=== PATIENT | female | born 1995 | race Caucasian/White ===

== ENCOUNTER 2019-02-23 11:37 | Day surgery (SDC) | payer MEDICAID, OTHER ==
[~2019-02-23] VITALS: Ht 154.9 cm; Wt 82.0 kg
[2019-02-23] MEDS ORDERED: ALBUTEROL (12:16)
[2019-02-23] MEDS ORDERED: ZANTAC (12:17)
[2019-02-23] MEDS ORDERED: OMEPRAZOLE (12:17)
[2019-02-23] MEDS ORDERED: HYDROCHLOROQUIN (12:17)
[2019-02-23] MEDS ORDERED: BIRTH CONTROL (12:18)
[2019-02-23 12:19] VITALS: Ht 154.9 cm; Wt 82.0 kg
--- NOTE | 2019-02-23 12:39 | PREAC ---
Date/Time of Note Date/Time of Note DATE: 02/23/19 TIME: 12:38 Anesthesia Eval and Record Evaluation Time Pre-Procedure Interview DATE: 02/23/19 TIME: 12:38 Age 23 Sex female NPO: 8 hrs Preoperative diagnosis GERD Planned procedure EGD Past Medical History Past Medical History: Includes Pulm: Asthma GI: GERD Surgery & Anesthesia Issues No known issue Meds Anticoagulation: No Beta Faisal within 24 hr: No Reason Beta Faisal not given: Pt. not on B-Faisal Reported Medications [ Control] No Conflict Check 02/23/19 [Hydrochloroquin] No Conflict Check 02/23/19 [Zantac] No Conflict Check 02/23/19 [Omeprazole] No Conflict Check 02/23/19 [Albuterol] No Conflict Check 02/23/19 Meds reviewed: Yes Allergies Coded Allergies: Sulfa (Sulfonamide Antibiotics) (Verified Allergy, Severe, HIVES, 02/23/19) amoxicillin (Verified Allergy, Severe, hives, 02/23/19) Penicillins (Verified Allergy, Unknown, 02/23/19) Allergies Reviewed: Yes Labs/Studies Labs Reviewed: Reviewed by anesthesiologist test: Negative Pre-procedure Exam Airway: Adequate mouth opening Mallampati: Mallampati II Teeth: Normal Lung: Normal Heart: Normal ASA Physical Status ASA physical status: 2 Emergency: None Planned Anesthetic General/MAC: MAC Pre-operative Attestations Prior to commencing anesthesia and surgery, the patient was re-evaluated, there was verification of: *The patient's identity *The results of appropriate recent lab work and preoperative vital signs *The above evaluation not changing prior to induction *Anesthetic plan, risk benefits, alternative and complications discussed with patient/family; questions answered; patient/family understands, accepts and wishes to proceed. APARNA STEWART MD February 23, 2019 12:39
[2019-02-23 12:40] VITALS: BP 109/63; PULSE 85; RESP 18
[2019-02-23] MEDS ORDERED: PROPOFOL 20 ML ONE (12:40)
[2019-02-23] MEDS ORDERED: LIDOCAINE 2% (SDV) 5 ML INJ ONE (12:40)
[2019-02-23] MEDS ORDERED: ONDANSETRON 4 MG INJ IV PRN (13:00)
[2019-02-23] MEDS ORDERED: morphine (1 MG/ML) 10ML SYRINGE IV PRN (13:00)
[2019-02-23 13:27] VITALS: BP 104/62; PULSE 78; RESP 18
--- NOTE | 2019-02-23 13:39 | PAC ---
Date/Time of Note Date/Time of Note DATE: 02/23/19 TIME: 13:38 Post-Anesthesia Notes Post-Anesthesia Note Last documented vital signs Vital Signs Date Temp Pulse Resp B/P (MAP) Pulse Ox O2 O2 Flow FiO2 Time Delivery Rate 02/23/19 78 18 104/62 100 Room Air 13:27 (76) 02/23/19 98.2 12:40 Activity: WNL Respiratory function: WNL Cardiovascular function: WNL Mental status: Baseline Pain reasonably controlled: Yes Hydration appropriate: Yes Nausea/Vomiting absent: Yes APARNA STEWART MD February 23, 2019 13:39
[2019-02-23 14:05] VITALS: BP 129/64; PULSE 66; RESP 16
--- NOTE | 2019-02-23 16:22 | CONS ---
DATE OF ADMISSION: 02/23/2019 DATE OF CONSULTATION: PATIENT NAME: MIKE MCHUGH TYPE OF CONSULTATION: Preoperative gastroenterology. Dear Dr. Jeff: I thank you very much for this kind referral. HISTORY OF PRESENT ILLNESS: Ms. Mike Mchugh is a 22-year-old female patient who has been referred t o me for further evaluation of chronic heartburn not responding to therapy. The patient has been marquise ing omeprazole 40 mg once or twice a day and Zantac 150 mg p.o. b.i.d. She also takes Reglan 10 mg p .o. at bedtime. No upper abdominal pain. Not on nonsteroidal anti-inflammatory agents. No history of gallstones or liver disease. No change in the bowel habit or rectal bleeding. Not a hypertensive or diabetic. No heart disease. PAST MEDICAL HISTORY: The patient has got bronchial asthma. No kidney disease. She has lupus. SOCIAL HISTORY: Nonsmoker. No alcohol abuse. FAMILY HISTORY: No family history of gastrointestinal tract neoplasm. ALLERGIES: ALLERGIC TO: 1. PENICILLIN. 2. AMOXICILLIN. 3. SULFA. PHYSICAL EXAMINATION: VITAL SIGNS: She is 5 feet, 1 inch tall and weighs 175 pounds. HEART: Normal heart sounds. LUNGS: Clear. ABDOMEN: Soft. No masses. Normal bowel sounds. NEUROLOGIC: Normal. IMPRESSION: 1. Chronic heartburn, not completely responding to therapy with omeprazole, Zantac and Reglan. 2. Bronchial asthma. 3. Lupus. 4. ALLERGY TO PENICILLIN, AMOXICILLIN AND SULFA. 6. The patient is on control pill. PLAN: 1. The patient was advised to stop Reglan because of the possible side effects. 2. Continue omeprazole and Zantac. 3. The patient was strongly advised to lose weight. 4. Upper endoscopy for further evaluation. 5. Because of the obesity with a short thick neck with history of bronchial asthma, she needs monito red anesthesia care. The procedure and possible complications are well explained to the patient. She understands and cons ents to the procedure. I thank you once again. With warmest personal regards, Dictated By: LESLYE FAUST/NTS Conf#: [id number] DID#: [id number]
== END 2019-02-23 14:48 | disposition home or self-care (01) ==
LOC: GIL 11:37
PROVIDERS: ATTEND Internal Medicine Gastroenterology
DX: K21.9 Gastro-esophageal reflux disease without esophagitis (principal); K29.60 Other gastritis without bleeding; J45.909 Unspecified asthma, uncomplicated
CPT/HCPCS: 43239; 84703; 88305; 88312; Z7610